=== PATIENT | female | born 1980 | race Caucasian/White ===

== ENCOUNTER → 2018-03-04 | Outpatient (REF) | payer BC ==
[~2018-03-04] MED LIST: ALP25 PO; ATOM40CA7 PO; BACDS PO; DES100PT PO; DIP25 PO; EMERGEN-C PO; GABA-490 PO; LAMO25TA64 PO; LOR5/325 PO; MULT-1131 PO; ONDA4TAB PO; PER PO; PRESTIQUE PO; QUE100 PO; QUET200T31 PO; TOPI-120 PO
[2018-03-04 15:33] LABS: PLATELET COUNT, AUTOMATED 206 K/uL (150-450)
== END ==
PROVIDERS: ATTEND Nurse Practitioner Family
DX: R00.2 Palpitations (principal)
CPT/HCPCS: 82040; 82247; 82310; 82374; 82435; 82565; 82947; 84075; 84132; 84155; 84295; 84450; 84460; 84484; 84520; 85025